=== PATIENT | female | born 1965 | race Caucasian/White ===

== ENCOUNTER 2016-05-09 19:29 | Emergency (ER) | payer BC ==
[2016-05-09] MEDS ORDERED: cefTRIAXone 1 GM Vial ONE (20:37)
--- NOTE | 2016-05-09 20:49 | EDM.PDOC ---
ED HPI RENAL/ - General Stated Complaint: uti Time Seen by Provider: 05/09/16 20:00 Source: Reports: Patient History Limitations: Reports: No limitations - History of Present Illness INITIAL COMMENTS - FREE TEXT/NARRATIVE: This is a 51yo F here for burning with urination, pain of the suprapubic region , b/l flank pain worse on the left and history of pyelonephritis and multiple UTI. Denies fever or chills. Symptom Onset Date: 05/09/16 Symptom Onset Time: 16:30 Timing/Duration: Reports: Hour(s):, Getting worse Location: Reports: flank, suprapubic Quality: Reports: ache, burning Severity: severe Worsens with: Reports: urinating Associated Symptoms: Reports: burning, dysuria ED ROS GENERAL - Review of Systems Review Of Systems: ROS reveals no pertinent complaints other than HPI. ED EXAM, RENAL/ - Physical Exam Exam: See Below Exam Limited By: No limitations General Appearance: alert, WD/WN, mild distress Respiratory/Chest: no respiratory distress, lungs clear Cardiovascular: normal peripheral pulses, regular rate, rhythm GI/Abdominal: normal bowel sounds, soft, non tender Back Exam: CVA tenderness (R), CVA tenderness (L) Extremities: normal inspection Neurological: alert, oriented, CN II-XII intact Skin Exam: Warm, Dry, Intact Course - Orders/Labs/Meds Orders: Active Orders 24 hr Category Date Time Status CULTURE URINE [RM] Stat Lab 05/09/16 20:00 Uncollected Labs: Laboratory Tests 05/09/16 Range/Units 19:45 Urine Color Yellow Urine Appearance Clear (CLEAR) Urine pH 5.5 (5.0-8.0) Ur Specific [place] >= 1.030 (1.003-1.030) Urine Protein Negative (NEGATIVE) mg/dL Urine Glucose (UA) Negative (NEGATIVE) mg/dL Urine Ketones Negative (NEGATIVE) mg/dL Urine Occult Blood Small H (NEGATIVE) Urine Nitrite Negative (NEGATIVE) Urine Bilirubin Negative (NEGATIVE) Urine Urobilinogen 0.2 (0.2-1.0) E.U./dL Ur Leukocyte Esterase Trace H (NEGATIVE) Urine RBC 10-20 H /HPF Urine WBC Semi-packed H /HPF Ur Squamous Epith Cells Moderate /HPF Urine Bacteria Occasional /HPF Meds: Medications Discontinued Medications Generic Name Dose Route Start Last Admin Trade Name Freq PRN Reason Stop Dose Admin Ceftriaxone Sodium Confirm 05/09/16 20:37 Rocephin Administered 05/09/16 20:38 Dose 1 gm .ROUTE .STK-MED ONE Departure - Departure Time of Disposition: 20:45 Disposition: Home, Self-Care 01 Condition: good Clinical Impression: Pyelonephritis Instructions: Urinary Tract Infection, Adult, Antibiotic Medicine Referrals: PCP,None [Primary Care Provider] - - Problem List Review Problem List Initiated/Reviewed/Updated: Yes - My Orders Last 24 Hours: My Active Orders 05/09/16 20:00 CULTURE URINE [RM] Stat - Assessment/Plan Last 24 Hours: My Active Orders 05/09/16 20:00 CULTURE URINE [RM] Stat Plan: Counseled on rocephin IM injection risks and benefits and f/u. Discussed nitrofurantoin use and side effects and f/u in ER or clinic if symptoms persist or worsen. Discussed close monitoring for fever, chills, increasing urinary issues, increasing pain or other concerns and need for close f/u.
[2016-05-09] MEDS ORDERED: cefTRIAXone 1 GM Vial IM ONE (22:43)
[2016-05-09] MEDS ORDERED: Nitrofurantoin Monohydrate/Macrocrystalline 100 MG Cap ONE (23:30)
== END 2016-05-09 20:45 | disposition home or self-care (01) ==
LOC: LB.ED 19:29
DX: N12 Tubulo-interstitial nephritis, not specified as acute or chronic (principal)
CPT/HCPCS: 81001; 87086; 87088; J0696; 87186; 96372; 99283-25; A9270-GY